=== PATIENT | female | born 1975 | race Caucasian/White ===

== ENCOUNTER 2017-06-20 17:33 | Emergency (ER) | payer MEDICAID, OTHER ==
[2017-06-20 18:01] VITALS: RESP 18
[2017-06-20] MEDS ORDERED: Sodium Chloride 0.9% 1,000 ML IV SCH (19:45)
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
[2017-06-20 20:35] LABS: BASO % 0.1 % (0.0-2.0); HEMOGLOBIN 11.9 g/dL (12.0-16.0); LYMPH # 0.8 K/uL (1.0-4.3); LYMPH % 6.6 % (20.0-40.0); MEAN CELL VOLUME 92.3 fl (81.0-99.0); MEAN CORPUSCULAR HEMOGLOBIN 29.8 pg (27.0-31.0); MEAN CORPUSCULAR HGB CONC 32.3 g/dL (33.0-37.0); MEAN PLATELET VOLUME 8.5 fl (7.2-11.7); MONO # 0.4 K/uL (0.0-0.8); MONO % 3.2 % (0.0-10.0); NEUT # 10.9 K/uL (1.8-7.0); NEUT % 90.1 % (50.0-75.0); PLATELET COUNT 314 K/uL (130-400); RBC 3.99 Mil/uL (3.80-5.20); RED CELL DISTRIBUTION WIDTH 13.5 % (11.5-14.5); WHITE BLOOD COUNT 12.1 K/uL (4.8-10.8)
[2017-06-20 21:01] LABS: ALB/GLOB RATIO 1.2 (1.0-2.1); ALBUMIN 3.9 g/dL (3.5-5.0); ALT/SGPT 29 U/L (9-52); AST/SGOT 22 U/L (14-36); BLOOD UREA NITROGEN 11 mg/dl (7-17); CALCIUM 9.3 mg/dL (8.4-10.2); GFR AFRICAN-AMERICAN > 60; GFR NON-AFRICAN AMERICAN > 60
[2017-06-20] MEDS ORDERED: Potassium Chloride 20 mEq ER Tab PO ONE ×2 (21:03→21:17)
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
[2017-06-20 21:39] LABS: BANDS 3 % (0-2); LYMPHOCYTE 12 % (20-50); MONOCYTE 6 % (0-10); NEUTROPHIL 79 % (42-75); TOTAL CELLS COUNTED 100
[2017-06-20 21:40] LABS: PLATELET ESTIMATE NORMAL (NORMAL)
[2017-06-20 21:41] LABS: OVALOCYTES SLIGHT
[2017-06-20 22:24] VITALS: BP 118/78; PULSE 70; TEMP 98.2
--- NOTE | 2017-06-21 08:33 | CARD ---
APPROVED REPORT EKG Measurement Heart [id number] <Conclusion> Normal sinus rhythm Normal ECG
[2017-06-25 03:37] VITALS: O2SAT 100
== END 2017-06-20 22:47 | disposition home or self-care (01) ==
LOC: H.ER 17:33
DX: R51 Headache (principal); R42 Dizziness and giddiness; K52.9 Noninfective gastroenteritis and colitis, unspecified
CPT/HCPCS: 70450; 80053; 81025; 83735; 85025; 93005; 96374; 96375; 99283; J1885; J2765; J7040